=== PATIENT | female | born 1990 | race Caucasian/White ===

== ENCOUNTER → 2020-06-28 | Outpatient (CLI) | payer OTHER | LOC: SJCVCIMAG 12:12 | PROVIDERS: ATTEND Internal Medicine | DX: R06.00 Dyspnea, unspecified (principal); R06.02 Shortness of breath; R07.9 Chest pain, unspecified; R00.0 Tachycardia, unspecified; Z87.891 Personal history of nicotine dependence ==

== ENCOUNTER → 2021-06-22 | Outpatient (CLI) | payer OTHER | LOC: SJCVCIMAG 07:25 | PROVIDERS: ATTEND Internal Medicine Cardiovascular Disease | DX: I07.1 Rheumatic tricuspid insufficiency (principal); R00.2 Palpitations ==

== ENCOUNTER → 2021-07-09 | Outpatient (CLI) | payer OTHER ==
[~2021-07-09] VITALS: Ht 157.5 cm; Wt 94.3 kg
[~2021-07-09] MED LIST: CELEXA 10 MG TA10 M1 PO; PHENERGAN 25 MG25 MG PO; TOPROL XL25 MG PO; VITAMIN D325 MC3 PO
[2021-07-09 07:34] VITALS: BP 113/55
[2021-07-09 07:51] LABS: ABSOLUTE NEUTROPHILS 7.7 thou/uL (1.4-8.2); BASOPHILS 0.5 % (0.0-2.0); HEMATOCRIT 39.6 % (37.0-47.0); HEMOGLOBIN 13.4 gm/dL (12.0-15.0); LYMPHOCYTES 18.5 % (24.0-44.0); MCH 28.3 pg (26.0-34.0); MCHC 33.7 g/dL (28.0-37.0); MCV 83.9 fL (80.0-100.0); MONOCYTES 7.4 % (1.0-8.0); PLATELET COUNT 267 thou/uL (150-400); POLYS 72.6 % (36.0-66.0); RBC 4.72 mil/uL (4.20-5.00); RDW 13.6 % (10.5-14.5); WBC 10.5 thou/uL (4.0-11.0)
[2021-07-09 08:06] LABS: APTT 29.1 Seconds (24.5-32.8); INR 1.01
[2021-07-09 08:16] LABS: CALCIUM 9.2 mg/dL (8.5-10.1); CREATININE 0.8 mg/dL (0.6-1.0); POTASSIUM 3.5 mmol/L (3.5-5.1)
[2021-07-09 08:22] LABS: TOTAL BILIRUBIN 0.7 mg/dL (0.2-1.0); TOTAL PROTEIN 7.3 g/dL (6.4-8.2)
--- NOTE | 2021-07-09 11:28 | NUR ---
VERBAL REPORT RECIEVED FROM ARABELLA RENE. PT RESTING COMFROTABLE WITH REQEUST FOR WATER. WATER TAKEN TO PT AND NO DIFFICULTY IN SWALLOWING NOTED.
== END | disposition home or self-care (01) ==
LOC: CATH 06:23
PROVIDERS: ATTEND Internal Medicine Cardiovascular Disease
DX: I47.1 Supraventricular tachycardia (principal); I49.9 Cardiac arrhythmia, unspecified; F32.9 Major depressive disorder, single episode, unspecified; F41.9 Anxiety disorder, unspecified; M79.7 Fibromyalgia; Z98.890 Other specified postprocedural states; Z79.899 Other long term (current) drug therapy; Z88.8 Allergy status to other drugs, medicaments and biological substances; Z20.822 Contact with and (suspected) exposure to COVID-19
CPT/HCPCS: 62110; 62900; 70005